=== PATIENT | female | born 1935 | race Caucasian/White ===

== ENCOUNTER 2017-07-20 15:53 | Inpatient (IN) | payer OTHER ==
[~2017-07-20] VITALS: Ht 167.6 cm; Wt 107.0 kg
[~2017-07-20 15:53] MED LIST: HIGH BLOOD PRESSURE PO; LEVO50TA5 PO; LISI1TAB7 PO; MELA1TAB7 PO; MULT-516 PO; POTA2TAB8 PO; RISP1TAB45 PO; THYROID PILL PO
[2017-07-20] MEDS ORDERED: ALBUTEROL/IPRATROPIUM 2.5MG/0.5MG, 3 ML ONE (17:21)
[2017-07-20] MEDS ORDERED: ACETAMINOPHEN 325 MG TABLET PO ONE (17:30)
[2017-07-20] MEDS ORDERED: ALBUTEROL/IPRATROPIUM 2.5MG/0.5MG, 3 ML NPPB ONE (17:30)
[2017-07-20] MEDS ORDERED: SODIUM CHLORIDE 0.9% 1,000ML IVBOLUS ONE (17:30)
[2017-07-20] MEDS ORDERED: SODIUM CHLORIDE FLUSH 10ML SYR IVF ONE (17:30)
[2017-07-20] MEDS ORDERED: ACETAMINOPHEN 325 MG TABLET ONE (17:39)
[2017-07-20 17:55] LABS: HEMATOCRIT 40.4 % (34.6-47.8); HEMOGLOBIN 13.5 g/dL (11.7-16.4); WHITE BLOOD COUNT 11.8 x10^3/uL (3.4-10)
[2017-07-20 18:08] LABS: ASPARTATE AMINO TRANSFERASE 74 U/L (15-37); BLOOD UREA NITROGEN 34 mg/dL (7-18)
[2017-07-20] MEDS ORDERED: CEFTRIAXONE PMX 1GM/50ML 50 ML IV ONE (18:30)
[2017-07-20 18:37] LABS: DIFF TOTAL CELLS COUNTED 100 CELL DIFF
[2017-07-20 18:39] LABS: VERIFY COUNTS? YES
[2017-07-20] MEDS ORDERED: CEFTRIAXONE PMX 1GM/50ML 50 ML ONE (19:10)
[2017-07-20 19:55] LABS: RAPID INFLUENZA A Negative (Negative); RAPID INFLUENZA B Negative (Negative)
[2017-07-20] MEDS ORDERED: KETOROLAC 30 MG/1 ML ONE (20:26)
[2017-07-20] MEDS ORDERED: KETOROLAC 30 MG/1 ML IVPush ONE (20:30)
[2017-07-20] MEDS ORDERED: ONDANSETRON 2MG/ML, 2ML IVPush PRN (22:00)
[2017-07-20] MEDS ORDERED: POTASSIUM CHLORIDE 20 MEQ TAB.ER.PRT PO ONE (22:00)
[2017-07-20] MEDS ORDERED: BISACODYL 10 MG SUPP PR PRN (22:00)
[2017-07-20] MEDS ORDERED: POLYETHYLENE GLYCOL 17 GM PACKET PO PRN (22:00)
[2017-07-20] MEDS ORDERED: KETOROLAC 30 MG/1 ML IVPush PRN (22:00)
[2017-07-20 22:47] VITALS: BP 98/61
[2017-07-20] MEDS: ACETAMINOPHEN 325 MG TABLET PO PRN (23:14)
[2017-07-20] MEDS: HEPARIN 5,000 UNITS/ML, 1ML SQ SCH (23:14)
[2017-07-20] MEDS: NICOTINE 7 MG/24 HR PATCH.TD24 TD SCH (23:15)
[2017-07-20] MEDS: PYRIDOXINE HCL PO SCH (23:15)
[2017-07-20] MEDS: MELATONIN PO SCH (23:15)
[2017-07-20] MEDS: POTASSIUM CHLORIDE 20 MEQ in SODIUM CHLORIDE 0.9% 1,000 ML IV SCH (23:16)
[2017-07-21 01:59] VITALS: BP 94/56
[2017-07-21] MEDS: LEVOTHYROXINE 50 MCG TABLET PO SCH (05:14)
[2017-07-21] MEDS: HEPARIN 5,000 UNITS/ML, 1ML SQ SCH ×3 (05:15→23:55)
[2017-07-21] MEDS: ACETAMINOPHEN 325 MG TABLET PO PRN ×3 (05:15→23:55)
[2017-07-21 05:55] LABS: HEMATOCRIT 35.1 % (34.6-47.8); HEMOGLOBIN 11.9 g/dL (11.7-16.4); WHITE BLOOD COUNT 15.2 x10^3/uL (3.4-10)
[2017-07-21 06:09] LABS: ASPARTATE AMINO TRANSFERASE 66 U/L (15-37); BLOOD UREA NITROGEN 38 mg/dL (7-18)
[2017-07-21 06:24] LABS: DIFF TOTAL CELLS COUNTED 100 CELL DIFF
[2017-07-21 06:26] LABS: VERIFY COUNTS? YES
[2017-07-21 06:35] VITALS: BP 83/49
[2017-07-21] MEDS ORDERED: VANCOMYCIN PER PHARMACY MC PRN (07:00)
[2017-07-21] MEDS ORDERED: SODIUM CHLORIDE 0.9% 1,000ML IVBOLUS ONE (07:00)
[2017-07-21] MEDS ORDERED: PHARMACOKINETIC MONITORING MC PRN (07:30)
[2017-07-21] MEDS ORDERED: VANCOMYCIN 1,800 MG in SODIUM CHLORIDE 0.9% 250 ML IV ONE (07:30)
[2017-07-21] MEDS ORDERED: LISINOPRIL 20 MG TABLET PO SCH (09:00)
[2017-07-21] MEDS ORDERED: HYDROCHLOROTHIAZIDE 25 MG TABLET PO SCH (09:00)
[2017-07-21] MEDS: SENNA/DOCUSATE TABLET PO SCH (09:13)
[2017-07-21] MEDS: MULTIVITAMIN 1 TABLET PO SCH (09:13)
[2017-07-21] MEDS: POTASSIUM CHLORIDE 20 MEQ in SODIUM CHLORIDE 0.9% 1,000 ML IV SCH (11:22)
[2017-07-21 12:03] VITALS: BP 94/58
[2017-07-21] MEDS ORDERED: MAGNESIUM SULFATE PMX 2GM/50ML 50 ML IV ONE (15:00)
[2017-07-21 19:03] VITALS: BP 97/52
[2017-07-21] MEDS: CEFTRIAXONE PMX 1GM/50ML 50 ML IV SCH (20:32)
[2017-07-21] MEDS: MELATONIN PO SCH (21:00)
[2017-07-21] MEDS: PYRIDOXINE HCL PO SCH (21:00)
[2017-07-21] MEDS: NICOTINE 7 MG/24 HR PATCH.TD24 TD SCH (23:55)
[2017-07-22] MEDS: POTASSIUM CHLORIDE 20 MEQ in SODIUM CHLORIDE 0.9% 1,000 ML IV SCH ×3 (01:35→23:43)
[2017-07-22 02:05] VITALS: BP 96/56
[2017-07-22 05:11] LABS: HEMATOCRIT 33.1 % (34.6-47.8); HEMOGLOBIN 11.3 g/dL (11.7-16.4); WHITE BLOOD COUNT 13.4 x10^3/uL (3.4-10)
[2017-07-22 05:21] LABS: BLOOD UREA NITROGEN 31 mg/dL (7-18)
[2017-07-22 05:46] LABS: DIFF TOTAL CELLS COUNTED 100 CELL DIFF
[2017-07-22 05:48] LABS: VERIFY COUNTS? YES
[2017-07-22] MEDS: LEVOTHYROXINE 50 MCG TABLET PO SCH (06:44)
[2017-07-22] MEDS: HEPARIN 5,000 UNITS/ML, 1ML SQ SCH ×3 (06:44→22:36)
[2017-07-22 07:45] VITALS: BP 100/62
[2017-07-22] MEDS: SENNA/DOCUSATE TABLET PO SCH (09:09)
[2017-07-22] MEDS: VANCOMYCIN 1,800 MG in SODIUM CHLORIDE 0.9% 250 ML IV SCH (09:09)
[2017-07-22] MEDS: MULTIVITAMIN 1 TABLET PO SCH (09:09)
[2017-07-22 13:20] VITALS: BP 118/69
[2017-07-22 18:43] VITALS: BP 129/74
[2017-07-22] MEDS: ACETAMINOPHEN 325 MG TABLET PO PRN (19:36)
[2017-07-22] MEDS: CEFTRIAXONE PMX 1GM/50ML 50 ML IV SCH (19:36)
[2017-07-22] MEDS: PYRIDOXINE HCL PO SCH (19:36)
[2017-07-22] MEDS: MELATONIN PO SCH (19:36)
[2017-07-22] MEDS: NICOTINE 7 MG/24 HR PATCH.TD24 TD SCH (22:39)
[2017-07-23 00:02] VITALS: BP 116/70
[2017-07-23] MEDS: ACETAMINOPHEN 325 MG TABLET PO PRN (01:38)
[2017-07-23] MEDS: LEVOTHYROXINE 50 MCG TABLET PO SCH (05:26)
[2017-07-23] MEDS: HEPARIN 5,000 UNITS/ML, 1ML SQ SCH ×3 (05:26→23:09)
[2017-07-23 06:04] LABS: HEMATOCRIT 32.9 % (34.6-47.8); HEMOGLOBIN 11.2 g/dL (11.7-16.4)
[2017-07-23 06:10] LABS: BLOOD UREA NITROGEN 21 mg/dL (7-18)
[2017-07-23 06:55] VITALS: BP 114/66
[2017-07-23] MEDS: HYDROcodone/APAP 5/325 TABLET PO PRN ×2 (09:10→13:50)
[2017-07-23] MEDS: SENNA/DOCUSATE TABLET PO SCH (09:10)
[2017-07-23] MEDS: MULTIVITAMIN 1 TABLET PO SCH (09:10)
[2017-07-23] MEDS: VANCOMYCIN 1,800 MG in SODIUM CHLORIDE 0.9% 250 ML IV SCH (09:11)
[2017-07-23] MEDS: POTASSIUM CHLORIDE 20 MEQ in SODIUM CHLORIDE 0.9% 1,000 ML IV SCH ×2 (11:47→23:08)
[2017-07-23 14:00] VITALS: BP 133/72
[2017-07-23 19:03] VITALS: BP 131/70
[2017-07-23] MEDS: PYRIDOXINE HCL PO SCH (21:00)
[2017-07-23] MEDS: MELATONIN PO SCH (21:00)
[2017-07-23] MEDS: NICOTINE 7 MG/24 HR PATCH.TD24 TD SCH (22:00)
[2017-07-23] MEDS: CEFTRIAXONE PMX 1GM/50ML 50 ML IV SCH (23:09)
[2017-07-24 01:57] VITALS: BP 145/72
[2017-07-24] MEDS: LEVOTHYROXINE 50 MCG TABLET PO SCH (05:40)
[2017-07-24] MEDS: HEPARIN 5,000 UNITS/ML, 1ML SQ SCH ×3 (05:40→22:15)
[2017-07-24] MEDS: POTASSIUM CHLORIDE 20 MEQ in SODIUM CHLORIDE 0.9% 1,000 ML IV SCH (08:12)
[2017-07-24 08:29] VITALS: BP 157/80
[2017-07-24] MEDS: SENNA/DOCUSATE TABLET PO SCH (09:00)
[2017-07-24] MEDS: MULTIVITAMIN 1 TABLET PO SCH (09:11)
[2017-07-24] MEDS: HYDROcodone/APAP 5/325 TABLET PO PRN ×3 (09:11→19:57)
[2017-07-24] MEDS ORDERED: PHARMACY INSTRUCTION MC SCH (10:00)
[2017-07-24] MEDS: CIPROFLOXACIN LACTATE 200 MG in DEXTROSE 5% 100 ML IV SCH (12:44)
[2017-07-24 14:15] VITALS: BP 156/76
[2017-07-24] MEDS: CEFAZOLIN PMX 2GM/50ML 50 ML IVPB SCH ×2 (14:21→22:15)
[2017-07-24] MEDS: NS + 20MEQ KCL 1,000 ML IV SCH (17:39)
[2017-07-24 19:48] VITALS: BP 146/74
[2017-07-24] MEDS: PYRIDOXINE HCL PO SCH (21:00)
[2017-07-24] MEDS: MELATONIN PO SCH (21:00)
[2017-07-24] MEDS: NICOTINE 7 MG/24 HR PATCH.TD24 TD SCH (22:16)
[2017-07-25] MEDS: CIPROFLOXACIN LACTATE 200 MG in DEXTROSE 5% 100 ML IV SCH ×2 (00:47→11:16)
[2017-07-25 01:47] VITALS: BP 150/75
[2017-07-25] MEDS: NS + 20MEQ KCL 1,000 ML IV SCH (05:00)
[2017-07-25 05:26] LABS: HEMOGLOBIN 10.9 g/dL (11.7-16.4); WHITE BLOOD COUNT 7.9 x10^3/uL (3.4-10)
[2017-07-25] MEDS: LEVOTHYROXINE 50 MCG TABLET PO SCH (05:36)
[2017-07-25] MEDS: HEPARIN 5,000 UNITS/ML, 1ML SQ SCH ×3 (05:37→20:55)
[2017-07-25] MEDS: CEFAZOLIN PMX 2GM/50ML 50 ML IVPB SCH ×2 (05:37→15:19)
[2017-07-25 05:49] LABS: ASPARTATE AMINO TRANSFERASE 18 U/L (15-37); BLOOD UREA NITROGEN 14 mg/dL (7-18)
[2017-07-25] MEDS: HYDROcodone/APAP 5/325 TABLET PO PRN ×4 (05:51→21:20)
[2017-07-25 06:46] LABS: DIFF TOTAL CELLS COUNTED 100 CELL DIFF
[2017-07-25 06:48] LABS: VERIFY COUNTS? YES
[2017-07-25 06:50] LABS: ANISOCYTOSIS 1+
[2017-07-25 06:52] LABS: POLYCHROMASIA 1+
[2017-07-25] MEDS: MULTIVITAMIN 1 TABLET PO SCH (09:09)
[2017-07-25] MEDS: SENNA/DOCUSATE TABLET PO SCH (09:09)
[2017-07-25] MEDS ORDERED: POTASSIUM PHOSPHATE 44 MEQ in SODIUM CHLORIDE 0.9% 500 ML IV ONE (11:00)
[2017-07-25] MEDS ORDERED: MAGNESIUM SULFATE PMX 2GM/50ML 50 ML IV ONE (11:00)
[2017-07-25 11:40] VITALS: BP 132/77
[2017-07-25 15:25] VITALS: BP 143/71
[2017-07-25] MEDS: NICOTINE 7 MG/24 HR PATCH.TD24 TD SCH (20:56)
[2017-07-25] MEDS: MELATONIN PO SCH (21:00)
[2017-07-25] MEDS: PYRIDOXINE HCL PO SCH (21:00)
[2017-07-25 21:21] VITALS: BP 141/72
[2017-07-26] MEDS: CEFAZOLIN PMX 2GM/50ML 50 ML IVPB SCH ×3 (00:37→19:36)
[2017-07-26] MEDS: NS + 20MEQ KCL 1,000 ML IV SCH ×3 (00:37→19:38)
[2017-07-26] MEDS: CIPROFLOXACIN LACTATE 200 MG in DEXTROSE 5% 100 ML IV SCH ×2 (02:13→13:03)
[2017-07-26 03:44] VITALS: BP 158/75
[2017-07-26 05:00] LABS: ASPARTATE AMINO TRANSFERASE 16 U/L (15-37); BLOOD UREA NITROGEN 15 mg/dL (7-18)
[2017-07-26 05:09] LABS: HEMATOCRIT 30.8 % (34.6-47.8); HEMOGLOBIN 10.6 g/dL (11.7-16.4); WHITE BLOOD COUNT 8.3 x10^3/uL (3.4-10)
[2017-07-26] MEDS: LEVOTHYROXINE 50 MCG TABLET PO SCH (05:10)
[2017-07-26] MEDS: HEPARIN 5,000 UNITS/ML, 1ML SQ SCH ×2 (05:10→17:31)
[2017-07-26] MEDS: HYDROcodone/APAP 5/325 TABLET PO PRN ×3 (05:22→23:28)
[2017-07-26 06:52] LABS: DIFF TOTAL CELLS COUNTED 100 CELL DIFF
[2017-07-26 06:54] LABS: ANISOCYTOSIS 1+; VERIFY COUNTS? YES
[2017-07-26 06:55] LABS: POLYCHROMASIA 1+
[2017-07-26 07:22] VITALS: BP 133/57
[2017-07-26] MEDS: SENNA/DOCUSATE TABLET PO SCH (13:03)
[2017-07-26] MEDS: MULTIVITAMIN 1 TABLET PO SCH (13:03)
[2017-07-26 13:36] VITALS: BP 129/83
[2017-07-26 20:48] VITALS: BP 120/66
[2017-07-26] MEDS: MELATONIN PO SCH (21:00)
[2017-07-26] MEDS: PYRIDOXINE HCL PO SCH (21:00)
[2017-07-26] MEDS: NICOTINE 7 MG/24 HR PATCH.TD24 TD SCH (23:18)
[2017-07-27] MEDS ORDERED: CIPROFLOXACIN/PMX 400MG/200ML 200 ML IVPB SCH (01:00)
[2017-07-27] MEDS: HEPARIN 5,000 UNITS/ML, 1ML SQ SCH ×3 (02:18→18:00)
[2017-07-27] MEDS: CIPROFLOXACIN 250 MG TABLET PO SCH ×3 (02:18→21:33)
[2017-07-27 03:55] VITALS: BP 145/75
[2017-07-27] MEDS: LEVOTHYROXINE 50 MCG TABLET PO SCH (04:56)
[2017-07-27] MEDS: HYDROcodone/APAP 5/325 TABLET PO PRN ×2 (04:56→18:03)
[2017-07-27] MEDS: NS + 20MEQ KCL 1,000 ML IV SCH ×2 (04:56→16:00)
[2017-07-27] MEDS: CEFAZOLIN PMX 2GM/50ML 50 ML IVPB SCH ×3 (04:56→20:08)
[2017-07-27 07:25] VITALS: BP 144/72
[2017-07-27] MEDS: SENNA/DOCUSATE TABLET PO SCH (09:00)
[2017-07-27] MEDS: MULTIVITAMIN 1 TABLET PO SCH (12:21)
[2017-07-27 13:32] VITALS: BP 157/73
[2017-07-27 19:41] VITALS: BP 134/72
[2017-07-27] MEDS: PYRIDOXINE HCL PO SCH (19:43)
[2017-07-27] MEDS: MELATONIN PO SCH (19:43)
[2017-07-27] MEDS: NICOTINE 7 MG/24 HR PATCH.TD24 TD SCH (21:34)
[2017-07-28 01:00] VITALS: BP 164/75
[2017-07-28] MEDS: NS + 20MEQ KCL 1,000 ML IV SCH ×3 (02:00→20:43)
[2017-07-28] MEDS: HYDROcodone/APAP 5/325 TABLET PO PRN ×3 (02:34→20:18)
[2017-07-28] MEDS: HEPARIN 5,000 UNITS/ML, 1ML SQ SCH ×3 (02:34→18:18)
[2017-07-28] MEDS: LEVOTHYROXINE 50 MCG TABLET PO SCH (04:45)
[2017-07-28] MEDS: CEFAZOLIN PMX 2GM/50ML 50 ML IVPB SCH ×3 (04:46→20:18)
[2017-07-28 06:52] VITALS: BP 147/73
[2017-07-28] MEDS ORDERED: CIPR250T27 PO (09:09)
[2017-07-28] MEDS ORDERED: NICO-485 TD (09:09)
[2017-07-28] MEDS ORDERED: CEFA2PLA9 IV (09:09)
[2017-07-28] MEDS ORDERED: POLY17PO5 PO (09:09)
[2017-07-28] MEDS ORDERED: HYDR-3240 PO (09:09)
[2017-07-28] MEDS ORDERED: ACET325T14 PO (09:09)
[2017-07-28] MEDS: SENNA/DOCUSATE TABLET PO SCH (09:58)
[2017-07-28] MEDS: CIPROFLOXACIN 250 MG TABLET PO SCH ×2 (09:58→21:54)
[2017-07-28] MEDS: MULTIVITAMIN 1 TABLET PO SCH (09:58)
[2017-07-28] MEDS ORDERED: PICC FLUSH PROTOCOL XX SCH (10:30)
[2017-07-28 12:49] VITALS: BP 122/64
[2017-07-28 20:08] VITALS: BP 146/72
[2017-07-28] MEDS: NICOTINE 7 MG/24 HR PATCH.TD24 TD SCH (20:42)
[2017-07-28] MEDS: MELATONIN PO SCH (20:42)
[2017-07-28] MEDS: PYRIDOXINE HCL PO SCH (20:42)
[2017-07-29 01:50] VITALS: BP 150/69
[2017-07-29] MEDS: HEPARIN 5,000 UNITS/ML, 1ML SQ SCH ×2 (02:08→09:31)
[2017-07-29] MEDS: CEFAZOLIN PMX 2GM/50ML 50 ML IVPB SCH ×2 (03:55→11:52)
[2017-07-29] MEDS: LEVOTHYROXINE 50 MCG TABLET PO SCH (05:40)
[2017-07-29] MEDS: HYDROcodone/APAP 5/325 TABLET PO PRN ×3 (05:49→16:16)
[2017-07-29 07:40] VITALS: BP 155/79
[2017-07-29] MEDS: NS + 20MEQ KCL 1,000 ML IV SCH (08:00)
[2017-07-29] MEDS: MULTIVITAMIN 1 TABLET PO SCH (09:30)
[2017-07-29] MEDS: SENNA/DOCUSATE TABLET PO SCH (09:30)
[2017-07-29] MEDS: CIPROFLOXACIN 250 MG TABLET PO SCH (09:30)
[2017-07-29 13:42] VITALS: BP 151/75
== END 2017-07-29 17:29 | DRG 871 ==
LOC: ED 20:16 → EDIP 20:26 → 4NOR 22:10
PROVIDERS: ADMIT Hospitalist; ATTEND Internal Medicine
PROC: 0T9B70Z Drainage of Bladder with Drainage Device, Via Natural or Artificial Opening (ICD-10-PCS; 2017-07-20)
PROC: 02HV33Z Insertion of Infusion Device into Superior Vena Cava, Percutaneous Approach (ICD-10-PCS; principal; 2017-07-28)
PROC: B548ZZA Ultrasonography of Superior Vena Cava, Guidance (ICD-10-PCS; 2017-07-28)
DX: A41.51 Sepsis due to Escherichia coli [E. coli] (principal); G93.41 Metabolic encephalopathy; N17.0 Acute kidney failure with tubular necrosis; E43 Unspecified severe protein-calorie malnutrition; E87.1 Hypo-osmolality and hyponatremia; N39.0 Urinary tract infection, site not specified; I10 Essential (primary) hypertension; B95.4 Other streptococcus as the cause of diseases classified elsewhere; F17.210 Nicotine dependence, cigarettes, uncomplicated; B96.20 Unspecified Escherichia coli [E. coli] as the cause of diseases classified elsewhere; E03.9 Hypothyroidism, unspecified; E87.6 Hypokalemia; M25.511 Pain in right shoulder; E83.39 Other disorders of phosphorus metabolism; M19.90 Unspecified osteoarthritis, unspecified site; Z66 Do not resuscitate; Z85.3 Personal history of malignant neoplasm of breast; Z90.710 Acquired absence of both cervix and uterus; Z90.49 Acquired absence of other specified parts of digestive tract
CPT/HCPCS: 36415; 36569; 70450; 71010; 76937; 77001; 80048; 80053; 80202; 81001; 83605; 83735; 84100; 84145; 84443; 85025; 85610; 85730; 87040; 87077; 87086; 87147; 87181; 87186; 87400; 93005; 94640; 96361; 96365; 96375; J0690; J0696; J1644; J1885; J3370; J3480; J7620; C1751; J0744; J3475; J7030; J7040; J7050